=== PATIENT | male | born 1945 | race Caucasian/White ===

== ENCOUNTER 2018-10-10 09:09 | Day surgery (SDC) ==
[2018-10-10] MEDS: BETADINE OPTH PREP OP PRN ×2 (09:55→10:39)
[2018-10-10] MEDS: TETRACAINE 0.5% UNIT-DOSE OP PRN ×2 (09:55→10:39)
[2018-10-10] MEDS: CYCLOGYL 2% OPTH OP PRN ×3 (09:56→10:06)
[2018-10-10] MEDS ORDERED: LIDOCAINE 1%/PHENYLEPHRINE 1.5% BSS (SURGERY) INTRAOCULA ONE (10:06)
[2018-10-10] MEDS ORDERED: ZOFRAN 4 MG/2 ML IVP ONE (10:06)
[2018-10-10] MEDS ORDERED: DEX-MOXI-KETOR OPTH INJ 1/0.5/0.4 MG/ML IO ONE (10:06)
[2018-10-10] MEDS ORDERED: BSS WITH EPINEPHRINE OP ONE (10:06)
[2018-10-10] MEDS ORDERED: BRIMONIDINE TARTRATE 0.2% OPTH SOL OP PRN (10:06)
[2018-10-10] MEDS ORDERED: LIDOCAINE 1% 20 ML MDV ID STA (10:06)
[2018-10-10] MEDS ORDERED: DIPRIVAN 20 ML VIAL IVP ONE (10:45)
[2018-10-10] MEDS ORDERED: ZOFRAN 4 MG/2 ML ONE (10:45)
[2018-10-10] MEDS ORDERED: VERSED ONE (10:45)
[2018-10-10] MEDS ORDERED: SUBLIMAZE ONE (10:45)
[2018-10-10] MEDS ORDERED: TORADOL ONE (10:45)
[2018-10-10 10:53] VITALS: TEMP 98.2
[2018-10-10] MEDS ORDERED: MIOSTAT INTRAOCULA ONE (11:16)
[2018-10-10 13:44] VITALS: BP 102/53
== END 2018-10-10 12:00 | disposition home or self-care (01) ==
LOC: SURG 09:09
PROVIDERS: ATTEND Ophthalmology
DX: H25.811 Combined forms of age-related cataract, right eye (principal)

== ENCOUNTER 2018-10-23 07:08 | Day surgery (SDC) ==
[2018-10-23] MEDS ORDERED: LIDOCAINE 1% 20 ML MDV ID STA (08:25)
[2018-10-23] MEDS ORDERED: ZOFRAN 4 MG/2 ML IVP ONE (08:25)
[2018-10-23] MEDS: TETRACAINE 0.5% UNIT-DOSE OP PRN ×2 (08:25→09:18)
[2018-10-23] MEDS ORDERED: LIDOCAINE 1%/PHENYLEPHRINE 1.5% BSS (SURGERY) INTRAOCULA ONE (08:25)
[2018-10-23] MEDS ORDERED: DEX-MOXI-KETOR OPTH INJ 1/0.5/0.4 MG/ML IO ONE (08:25)
[2018-10-23] MEDS ORDERED: BRIMONIDINE TARTRATE 0.2% OPTH SOL OP PRN (08:25)
[2018-10-23] MEDS: BETADINE OPTH PREP OP PRN ×2 (08:25→09:18)
[2018-10-23] MEDS ORDERED: BSS WITH EPINEPHRINE OP ONE (08:25)
[2018-10-23] MEDS: CYCLOGYL 2% OPTH OP PRN ×3 (08:26→08:36)
[2018-10-23 08:36] VITALS: TEMP 97.7
[2018-10-23] MEDS: DEXTROSE 50%-WATER ABBOJECT IVP STA ×2 (08:41→08:55)
[2018-10-23] MEDS ORDERED: AK-DILATE 10% OPTH SOL OP PRN (09:02)
[2018-10-23] MEDS ORDERED: SUBLIMAZE ONE (09:18)
[2018-10-23] MEDS ORDERED: ZOFRAN 4 MG/2 ML ONE (09:18)
[2018-10-23] MEDS ORDERED: VERSED ONE (09:18)
[2018-10-23 10:37] VITALS: BP 121/56
== END 2018-10-23 10:20 | disposition home or self-care (01) ==
LOC: SURG 07:08
PROVIDERS: ATTEND Ophthalmology
DX: H25.812 Combined forms of age-related cataract, left eye (principal)
CPT/HCPCS: 82962